=== PATIENT | female | born 1995 | race African-American/Black ===

== ENCOUNTER 2017-07-07 09:11 | Emergency (ER) | payer OTHER ==
[~2017-07-07] VITALS: Ht 172.7 cm; Wt 86.2 kg
[~2017-07-07 09:11] MED LIST: NO MEDICATIONS
[2017-07-07 09:34] LABS: URINE SOURCE CLEAN CATCH
[2017-07-07 09:39] LABS: URINE APPEARANCE CLEAR; URINE BILIRUBIN NEG (NEG); URINE BLOOD 2+ (NEG); URINE COLOR YELLOW; URINE GLUCOSE NEG (NORM); URINE KETONE NEG (NEG); URINE LEUKOCYTE ESTERASE NEG (NEG); URINE NITRATE NEG (NEG); URINE PROTEIN NEG (NEG)
[2017-07-07 09:44] LABS: MICRO INDICATED? YES
[2017-07-07 09:46] LABS: CULTURE INDICATED? NO; URINE BACTERIA NEG (NEG); URINE WBC 0-2 /[HPF] (0-5)
== END 2017-07-07 10:18 | disposition home or self-care (01) ==
LOC: SED 09:11
PROVIDERS: Emergency Medicine
DX: N94.6 Dysmenorrhea, unspecified (principal)
CPT/HCPCS: 81003; 84703; 99283

== ENCOUNTER 2017-07-11 21:29 | Emergency (ER) | payer OTHER ==
[~2017-07-11] VITALS: Ht 170.2 cm; Wt 86.2 kg
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
== END 2017-07-11 23:48 | disposition home or self-care (01) ==
LOC: SED 21:29
DX: S13.4XXA Sprain of ligaments of cervical spine, initial encounter (principal); S39.012A Strain of muscle, fascia and tendon of lower back, initial encounter; S80.02XA Contusion of left knee, initial encounter; Z23 Encounter for immunization; V49.40XA Driver injured in collision with unspecified motor vehicles in traffic accident, initial encounter; Y92.488 Other paved roadways as the place of occurrence of the external cause
CPT/HCPCS: 72040; 72100; 73590; 90471; 90715; 99284